=== PATIENT | male | born 1975 | race African-American/Black ===

== ENCOUNTER 2024-02-24 23:06 | Emergency (ER) | payer SELFPAY ==
[2024-02-25] MEDS: Acetaminophen/HYDROcodone 325-5 MG Tab PO ONE (00:49)
== END 2024-02-25 01:43 | disposition home or self-care (01) ==
LOC: JD.ED 23:06
DX: S81.832A Puncture wound without foreign body, left lower leg, initial encounter (principal); W34.00XA Accidental discharge from unspecified firearms or gun, initial encounter
CPT/HCPCS: 73590; 99283; A9270

== ENCOUNTER 2024-02-28 14:31 | Emergency (ER) | payer MEDICARE, MEDICAID ==
[2024-02-28] MEDS: Sodium Chloride 0.9% 10 ML Syringe FLUSH PRN (15:50)
[2024-02-28 15:58] LABS: BASOPHILS PERCENT AUTO 0.4 % (0.0-1.0); EOSINOPHILS ABSOLUTE AUTO 0.1 K/mm3 (0.0-0.4); EOSINOPHILS PERCENT AUTO 1.4 % (0.0-6.0); HEMATOCRIT 43.7 % (42.0-52.0); HEMOGLOBIN 14.5 gm/dl (14.0-18.0); IMMATURE GRAN ABSOLUTE AUTO 0.02 K/mm3 (0.00-0.05); IMMATURE GRAN PERCENT AUTO 0.3 % (0.0-0.4); LYMPHOCYTES ABSOLUTE AUTO 1.9 K/mm3 (1.0-4.8); LYMPHOCYTES PERCENT AUTO 26.2 % (24.0-44.0); MEAN CORPUSCULAR HEMOGLOBIN 26.5 pg (28.0-32.0); MEAN CORPUSCULAR HGB CONC 33.2 g/dl (32.0-36.0); MEAN CORPUSCULAR VOLUME 79.7 fl (83.0-99.0); MONOCYTES PERCENT AUTO 13.6 % (0.0-8.0); NEUTROPHILS ABSOLUTE AUTO 4.3 K/mm3 (1.8-7.7); NEUTROPHILS PERCENT AUTO 58.1 % (41.0-71.0); PLATELET COUNT,PLT 182 K/mm3 (150-400); RED BLOOD CELL COUNT 5.48 M/mm3 (4.52-5.90); WHITE BLOOD CELL COUNT,WBC 7.38 K/mm3 (3.9-11.3)
[2024-02-28 16:41] LABS: A/G RATIO 0.7 (1-2); ALBUMIN 3.6 g/dl (3.4-5.0); ANION GAP 9.1 (5-15); BILIRUBIN TOTAL 0.8 mg/dL (0.2-1.0); BUN/CREATININE RATIO 11.4 (14-18); C-REACTIVE PROTEIN 5.06 mg/dL (<0.30); CALCIUM 9.2 mg/dL (8.5-10.1); CREATININE 1.4 mg/dL (0.7-1.3); EST CRCL DRUG DOSING (CG) 73.72 mL/min; POTASSIUM,K 4.1 mEq/L (3.5-5.1); PROTEIN TOTAL,TP 8.7 g/dl (6.4-8.2)
[2024-02-28] MEDS: cefTRIAXone 2 GM in Sodium Chloride 0.9% 100 ML IV ONE (17:35)
== END 2024-02-28 18:25 | disposition home or self-care (01) ==
LOC: JD.ED 14:31
DX: S81.832D Puncture wound without foreign body, left lower leg, subsequent encounter (principal); I10 Essential (primary) hypertension; E11.9 Type 2 diabetes mellitus without complications; F17.210 Nicotine dependence, cigarettes, uncomplicated; Z79.84 Long term (current) use of oral hypoglycemic drugs; Z79.899 Other long term (current) drug therapy; Z79.51 Long term (current) use of inhaled steroids; W32.0XXD Accidental handgun discharge, subsequent encounter
CPT/HCPCS: 36415; 80053; 85025; 86140; 87070; 87205; 93971; 96365; 99284; J0696; J3490; 87077; 87186